=== PATIENT | male | born 1995 | race African-American/Black ===

== ENCOUNTER 2017-04-02 16:03 | Emergency (ER) | payer SELFPAY, OTHER | END 2017-04-02 16:50 | disposition home or self-care (01) | LOC: FTE 16:03 | DX: J02.9 Acute pharyngitis, unspecified (principal) | CPT/HCPCS: 99284 ==

== ENCOUNTER 2017-08-14 00:52 | Emergency (ER) | payer OTHER ==
[2017-08-14] MEDS: IBUPROFEN 800 MG TAB PO (01:27)
[2017-08-14] MEDS ORDERED: LIDOCAINE 1% (MDV) 10 ML INJ INFIL (02:26)
[2017-08-14] MEDS ORDERED: FENTAnyl 50 MCG/ML VIAL IM (02:30)
[2017-08-14] MEDS: FENTAnyl 50 MCG/ML VIAL IV ×2 (03:12→03:16)
== END 2017-08-14 03:54 | disposition home or self-care (01) ==
LOC: FTE 00:52 → E/R 03:54
DX: S43.004A Unspecified dislocation of right shoulder joint, initial encounter (principal); W18.39XA Other fall on same level, initial encounter; Y92.9 Unspecified place or not applicable
CPT/HCPCS: 23650; 73030-RT; 94770; 99285-25

== ENCOUNTER 2017-08-22 19:52 | Emergency (ER) | payer OTHER | END 2017-08-22 23:37 | disposition home or self-care (01) | LOC: E/R 19:52 | DX: M25.511 Pain in right shoulder (principal); J20.9 Acute bronchitis, unspecified | CPT/HCPCS: 99284; Z7502 ==

== ENCOUNTER 2018-01-07 16:23 | Emergency (ER) | payer OTHER ==
[2018-01-07] MEDS: CEFTRIAXONE 1 GM/50 ML (PMX) 50 ML IVPB (16:59)
[2018-01-07] MEDS: DEXAMETHASONE 10 MG/ML 1 ML INJ IV (16:59)
== END 2018-01-07 17:29 | disposition home or self-care (01) ==
LOC: FTE 16:23
DX: J03.90 Acute tonsillitis, unspecified (principal); Z87.891 Personal history of nicotine dependence
CPT/HCPCS: 96365; 96375; 99284-25

== ENCOUNTER 2018-01-30 15:39 | Emergency (ER) | payer SELFPAY, OTHER | END 2018-01-30 17:10 | disposition left against medical advice (07) | LOC: FTE 17:10 | DX: Z53.21 Procedure and treatment not carried out due to patient leaving prior to being seen by health care provider (principal) ==